=== PATIENT | male | born 1985 | race Caucasian/White ===

== ENCOUNTER 2018-11-15 11:36 | Emergency (ER) | payer SELFPAY | END 2018-11-15 12:06 | disposition home or self-care (01) | LOC: NAV ERS 11:36 | DX: L03.113 Cellulitis of right upper limb (principal); L25.9 Unspecified contact dermatitis, unspecified cause; F17.210 Nicotine dependence, cigarettes, uncomplicated | CPT/HCPCS: 99282 ==